=== PATIENT | female | born 1955 | race African-American/Black ===

== ENCOUNTER 2021-06-01 16:42 | Inpatient (IN) | payer OTHER ==
[~2021-06-01] VITALS: Ht 172.7 cm; Wt 81.8 kg
[2021-06-01 19:48] LABS: HEMATOCRIT. 28.9 % (36.0-48.0); HEMOGLOBIN. 8.9 g/dL (12.0-16.0); MEAN CORPUSCULAR HEMOGLOBIN 36.3 pg (28.0-32.0); MEAN CORPUSCULAR VOLUME 118.4 fL (81.0-99.0); MEAN PLATELET VOLUME 8.4 fl (7.4-10.4); PLATELET 228 x1000/uL (130-400); RED BLOOD CELL COUNT 2.44 mill/uL (4.2-5.4); RED CELL DISTRIBUTION WIDTH 14.9 % (11.6-14.6)
[2021-06-01 19:54] LABS: CHLORIDE 110 mEq/L (98-107)
[2021-06-01 19:58] LABS: ETHANOL BLOOD < 10 mg/dL
[2021-06-01 20:06] LABS: PARTIAL THROMBOPLASTIN TIME 42.5 sec (23.4-31.0); PROTHROMBIN TIME 20.8 sec (9.6-11.0)
[2021-06-01] MEDS ORDERED: VANCOMYCIN 1 G PREMIX 200 ML IV NR (20:25)
[2021-06-01] MEDS ORDERED: CEFEPIME 2,000 MG in DEXT 5% WATER 100 ML IV SCH (20:25)
[2021-06-01] MEDS ORDERED: SODIUM CHLORIDE 0.9% 1,000 ML IV ONE (20:30)
[2021-06-01 21:02] LABS: PLATELET ESTIMATE NORMAL
[2021-06-01 21:24] LABS: CLARITY URINE TURBID (CLEAR); COLOR URINE ORANGE (YELLOW); KETONES URINE TRACE (NEGATIVE); LEUKOCYTE ESTERASE URINE 3+ (NEGATIVE); NITRITE URINE POSITIVE (NEGATIVE); OCCULT BLOOD URINE 2+ (NEGATIVE); PH URINE 5.5 (4.5-8.0); PROTEIN URINE 1+ (NEGATIVE); SPECIFIC GRAVITY URINE 1.026 (1.005-1.030)
[2021-06-01] MEDS ORDERED: HALOPERIDOL LACTATE 5MG/ML VIAL IM ONE (21:45)
[2021-06-01] MEDS ORDERED: LORAZEPAM 2MG/ML CPJ IM ONE (21:45)
[2021-06-01 21:49] LABS: *COCAINE SCREEN URINE NEGATIVE (NEGATIVE); CANNABINOID URINE SCREEN PRESUMTIVE POSITIVE (NEGATIVE); METHADONE URINE SCREEN NEGATIVE (NEGATIVE); OPIATES URINE SCREEN PRESUMTIVE POSITIVE (NEGATIVE); PHENCYCLIDINE URINE SCREEN NEGATIVE (NEGATIVE)
[2021-06-01 21:50] LABS: *AMPHETAMINES SCREEN URINE NEGATIVE (NEGATIVE); *BARBITURATES SCREEN URINE NEGATIVE (NEGATIVE); *BENZODIAZEPINES SCREEN URINE NEGATIVE (NEGATIVE)
[2021-06-01] MEDS ORDERED: SODIUM CHLORIDE 0.9% 2,000 ML IV NR (22:30)
[2021-06-02] MEDS ORDERED: SODIUM CHLORIDE 0.9% 1000ML BAG (SEPSIS BOLUS) IV NR
[2021-06-02 00:30] LABS: BG BASE EXCESS -8.3 mmol/L (-2.0-2.0); BG CARBOXYHEMOGLOBIN 0.3 % (0.5-1.5); BG DEOXYHEMOGLOBIN 3.6 % (0.0-5.0); BG FRACTION INSPIRED OXYGEN 21; BG HCO3 ACT 14.5 mmol/L (22.0-26.0); BG METHEMOGLOBIN 0.4 % (0.0-1.5); BG OXYGEN SATURATION 96.4 % (92.0-98.5); BG OXYHEMOGLOBIN 95.7 % (94.0-97.0); BG PCO2 21.7 mmHg (35.0-45.0); BG PH 7.443 (7.350-7.450); BG PO2 94.1 mmHg (75.0-100.0); BG SAMPLE SITE RIGHT RADIAL; BG TOTAL HEMOGLOBIN 8.6 g/dL (12.0-18.0); BG VENT MODE ROOM AIR
[2021-06-02] MEDS ORDERED: DOCUSATE SODIUM 100MG CAPSULE PO PRN (01:45)
[2021-06-02] MEDS ORDERED: CLONIDINE 0.1MG TABLET PO PRN (01:45)
[2021-06-02] MEDS ORDERED: IPRATROPIUM/ALBUTEROL 0.5-3(2.5)MG/3ML NEB NEB PRN (01:45)
[2021-06-02] MEDS ORDERED: ACETAMINOPHEN 325MG TABLET PO PRN (01:45)
[2021-06-02] MEDS ORDERED: ONDANSETRON HCL 4MG/2ML INJ IV PRN (01:45)
[2021-06-02] MEDS ORDERED: MAGNESIUM/ALUMINUM HYDROXIDE/SIMETHICONE 30ML UDC PO PRN (01:45)
[2021-06-02] MEDS ORDERED: ALBUMIN HUMAN 25GM/100ML (25%) IV PRN (01:45)
[2021-06-02] MEDS ORDERED: MAGNESIUM 2 G PREMIX 50 ML IV NR (02:30)
[2021-06-02] MEDS ORDERED: MVI, ADULT NO.1 10 ML, FOLIC ACID 1 MG, THIAMINE HCL 100 MG in SODIUM CHLORIDE 0.9% 1,0... IV NR (02:30)
[2021-06-02] MEDS ORDERED: KCL 20MEQ/100ML PREMIX 100 ML IV NR (03:00)
[2021-06-02 03:47] LABS: HEMATOCRIT. 23.6 % (36.0-48.0); HEMOGLOBIN. 7.3 g/dL (12.0-16.0); MEAN CORPUSCULAR HEMOGLOBIN 36.6 pg (28.0-32.0); MEAN CORPUSCULAR VOLUME 117.8 fL (81.0-99.0); MEAN PLATELET VOLUME 8.3 fl (7.4-10.4); PLATELET 182 x1000/uL (130-400); RED CELL DISTRIBUTION WIDTH 14.7 % (11.6-14.6)
[2021-06-02 03:53] LABS: CHLORIDE 116 mEq/L (98-107)
[2021-06-02 04:03] LABS: HDL CHOLESTEROL 16 mg/dL (40-59)
[2021-06-02 04:04] LABS: LDL CHOLESTEROL 141 mg/dL (5-100)
[2021-06-02 05:06] LABS: CREATINE KINASE MB FRACTION 1.7 ng/mL (0.5-3.6)
[2021-06-02 05:27] LABS: HEPATITIS B SURFACE ANTIGEN NEGATIVE
[2021-06-02 05:37] LABS: PLATELET ESTIMATE NORMAL
[2021-06-02] MEDS ORDERED: LACTATED RINGERS 1,000 ML IV SCH (10:00)
[2021-06-02] MEDS ORDERED: PIPERACILLIN/TAZ 3.375G PREMIX 50 ML IV NR (11:15)
[2021-06-02] MEDS: SODIUM CHLORIDE 0.45% 1,000 ML IV SCH ×2 (11:49→22:59)
[2021-06-02 13:26] LABS: T4 FREE 1.22 ng/dL (0.76-1.46)
[2021-06-02 14:58] LABS: VITAMIN B12 SERUM >2000 pg/mL pg/mL (211-911)
[2021-06-02 18:30] VITALS: BP 121/75
[2021-06-02 20:00] VITALS: BP_SYST 106; BP_SYST 121; BP_DIAS 73; BP_DIAS 80
[2021-06-02 21:41] LABS: CREATINE KINASE MB FRACTION 4.7 ng/mL (0.5-3.6)
[2021-06-02] MEDS ORDERED: PIPERACILLIN/TAZOBACTAM 3.375 G in DEXTROSE 5% WATER 50 ML IV SCH (22:00)
[2021-06-03] VITALS (61 sets, daily range): BP systolic 49–205; BP diastolic 25–168
[2021-06-03 04:18] LABS: BG CARBOXYHEMOGLOBIN 0.3 % (0.5-1.5); BG DEOXYHEMOGLOBIN 0.5 % (0.0-5.0); BG FRACTION INSPIRED OXYGEN 100; BG HCO3 ACT 10.6 mmol/L (22.0-26.0); BG METHEMOGLOBIN 0.5 % (0.0-1.5); BG OXYGEN SATURATION 99.5 % (92.0-98.5); BG OXYHEMOGLOBIN 98.7 % (94.0-97.0); BG PCO2 13.2 mmHg (35.0-45.0); BG PH 7.524 (7.350-7.450); BG PO2 575.1 mmHg (75.0-100.0); BG SAMPLE SITE RIGHT FEMORAL; BG TOTAL HEMOGLOBIN 9.5 g/dL (12.0-18.0); BG TOTAL RESPIRATORY RATE 20 b/min; BG VENT MODE MASK - BIPAP
[2021-06-03] MEDS ORDERED: ALBUMIN HUMAN 25GM/100ML (25%) IV PRN ×2 (04:45→06:45)
[2021-06-03 06:10] LABS: HEMATOCRIT. 28.3 % (36.0-48.0); HEMOGLOBIN. 8.6 g/dL (12.0-16.0); MEAN CORPUSCULAR HEMOGLOBIN 36.3 pg (28.0-32.0); MEAN CORPUSCULAR VOLUME 119.5 fL (81.0-99.0); MEAN PLATELET VOLUME 8.5 fl (7.4-10.4); PLATELET 189 x1000/uL (130-400); RED BLOOD CELL COUNT 2.37 mill/uL (4.2-5.4)
[2021-06-03 06:16] LABS: CHLORIDE 116 mEq/L (98-107)
[2021-06-03] MEDS: SODIUM CHLORIDE 0.45% 1,000 ML IV SCH ×2 (06:37→20:20)
[2021-06-03] MEDS: PIPERACILLIN/TAZOBACTAM 3.375 G in DEXTROSE 5% WATER 50 ML IV SCH ×3 (08:11→21:44)
[2021-06-03] MEDS: THIAMINE HCL 100MG TABLET PO SCH (09:27)
[2021-06-03] MEDS: MULTIVITAMINS,THER W-MINERALS TABLET PO SCH (09:27)
[2021-06-03] MEDS: FOLIC ACID 1MG TABLET PO SCH (09:27)
[2021-06-03] MEDS ORDERED: POTASSIUM CHLORIDE INJ 40 MEQ in DEXT 5% WATER 500 ML IV ONE (10:15)
[2021-06-03 10:54] LABS: PLATELET ESTIMATE NORMAL
[2021-06-03] MEDS ORDERED: IOHEXOL-350 100 ML BOTTLE ONE (12:01)
[2021-06-03] MEDS: KCL 20MEQ/100ML PREMIX 100 ML IV SCH ×2 (12:27→13:47)
[2021-06-03] MEDS: IPRATROPIUM/ALBUTEROL 0.5-3(2.5)MG/3ML NEB HHN SCH (20:21)
[2021-06-04] VITALS (57 sets, daily range): BP systolic 70–186; BP diastolic 29–107
[2021-06-04] MEDS: IPRATROPIUM/ALBUTEROL 0.5-3(2.5)MG/3ML NEB HHN SCH ×4 (00:36→20:57)
[2021-06-04] MEDS ORDERED: DILTIAZEM HCL 125 MG in DEXT 5% WATER 100 ML IV PRN (04:00)
[2021-06-04] MEDS ORDERED: ALBUMIN HUMAN 25GM/100ML (25%) IV NR (04:30)
[2021-06-04] MEDS: PIPERACILLIN/TAZOBACTAM 3.375 G in DEXTROSE 5% WATER 50 ML IV SCH (05:08)
[2021-06-04 05:55] LABS: HEMATOCRIT. 24.5 % (36.0-48.0); HEMOGLOBIN. 7.7 g/dL (12.0-16.0); MEAN CORPUSCULAR HEMOGLOBIN 36.7 pg (28.0-32.0); MEAN CORPUSCULAR VOLUME 116.2 fL (81.0-99.0); PLATELET 173 x1000/uL (130-400); RED BLOOD CELL COUNT 2.11 mill/uL (4.2-5.4); RED CELL DISTRIBUTION WIDTH 15.7 % (11.6-14.6)
[2021-06-04 06:11] LABS: CHLORIDE 115 mEq/L (98-107)
[2021-06-04 06:20] LABS: PHOSPHORUS 1.4 mg/dL (2.5-4.9)
[2021-06-04] MEDS: THIAMINE HCL 100MG TABLET PO SCH (08:36)
[2021-06-04] MEDS: SODIUM CHLORIDE 0.45% 1,000 ML IV SCH ×2 (08:36→18:34)
[2021-06-04] MEDS: FOLIC ACID 1MG TABLET PO SCH (08:36)
[2021-06-04] MEDS: MULTIVITAMINS,THER W-MINERALS TABLET PO SCH (08:36)
[2021-06-04] MEDS: CEFEPIME 1,000 MG in DEXTROSE 5% WATER 50 ML IV SCH ×2 (12:56→21:14)
[2021-06-04] MEDS ORDERED: MAGNESIUM 2 G PREMIX 50 ML IV SCH (13:00)
[2021-06-04 17:53] LABS: PLATELET ESTIMATE NORMAL
[2021-06-05] VITALS (72 sets, daily range): BP systolic 47–163; BP diastolic 17–127
[2021-06-05] MEDS: IPRATROPIUM/ALBUTEROL 0.5-3(2.5)MG/3ML NEB HHN SCH ×4 (00:51→21:54)
[2021-06-05 05:30] LABS: MEAN CORPUSCULAR HEMOGLOBIN 36.4 pg (28.0-32.0); MEAN CORPUSCULAR VOLUME 113.1 fL (81.0-99.0); MEAN PLATELET VOLUME 8.9 fl (7.4-10.4); PLATELET 141 x1000/uL (130-400); RED BLOOD CELL COUNT 1.77 mill/uL (4.2-5.4); RED CELL DISTRIBUTION WIDTH 15.1 % (11.6-14.6)
[2021-06-05 05:41] LABS: CHLORIDE 114 mEq/L (98-107)
[2021-06-05] MEDS: SODIUM CHLORIDE 0.45% 1,000 ML IV SCH (05:47)
[2021-06-05 06:19] LABS: HEMOGLOBIN. 6.4 g/dL (12.0-16.0)
[2021-06-05] MEDS ORDERED: ETOMIDATE 2MG/ML 10ML VIAL IV ONE (07:50)
[2021-06-05] MEDS ORDERED: VECURONIUM BROMIDE 10 MG/VIAL IV ONE (07:50)
[2021-06-05] MEDS ORDERED: POTASSIUM CHLORIDE INJ 40 MEQ in DEXT 5% WATER 250 ML IV ONE (08:15)
[2021-06-05 08:52] LABS: NUCLEATED RED BLOOD CELLS 2 /100 WBC
[2021-06-05 08:53] LABS: PLATELET ESTIMATE NORMAL
[2021-06-05] MEDS: FOLIC ACID 1MG TABLET PO SCH (08:53)
[2021-06-05] MEDS: THIAMINE HCL 100MG TABLET PO SCH (08:53)
[2021-06-05] MEDS: CEFEPIME 1,000 MG in DEXTROSE 5% WATER 50 ML IV SCH ×2 (08:53→21:39)
[2021-06-05] MEDS: PHENYLEPHRINE 100 MG in DEXT 5% WATER 240 ML IV PRN ×2 (08:53→18:48)
[2021-06-05] MEDS: MULTIVITAMINS,THER W-MINERALS TABLET PO SCH (08:53)
[2021-06-05 10:34] LABS: TOTAL IRON BINDING CAPACITY 30 ug/dL (250-450)
[2021-06-05] MEDS: KCL 20MEQ/100ML PREMIX 100 ML IV SCH ×2 (10:52→11:28)
[2021-06-05] MEDS: DEXT 5%/0.45% NACL 1000ML 1,000 ML IV SCH ×2 (11:28→21:39)
[2021-06-05] MEDS: NOREPINEPHRINE 32 MG in DEXT 5% WATER 218 ML IV PRN ×2 (13:32→21:41)
[2021-06-05 15:17] LABS: BG BASE EXCESS -7.5 mmol/L (-2.0-2.0); BG CARBOXYHEMOGLOBIN 0.3 % (0.5-1.5); BG DEOXYHEMOGLOBIN 0.6 % (0.0-5.0); BG FRACTION INSPIRED OXYGEN 100; BG HCO3 ACT 15.1 mmol/L (22.0-26.0); BG METHEMOGLOBIN 0.3 % (0.0-1.5); BG OXYGEN SATURATION 99.4 % (92.0-98.5); BG OXYHEMOGLOBIN 98.8 % (94.0-97.0); BG PCO2 22.8 mmHg (35.0-45.0); BG PH 7.439 (7.350-7.450); BG PO2 432.9 mmHg (75.0-100.0); BG SAMPLE SITE RIGHT RADIAL; BG TOTAL HEMOGLOBIN 10.5 g/dL (12.0-18.0); BG VENT MODE MASK - NRB
[2021-06-05 17:09] LABS: HEMATOCRIT 29.7 % (36.0-48.0); HEMOGLOBIN 9.7 g/dL (12.0-16.0)
[2021-06-05 17:15] LABS: INR 1.4; PROTHROMBIN TIME 15.1 sec (9.6-11.0)
[2021-06-05] MEDS: DOPAMINE 400MG/250ML PREMIX 250 ML IV PRN (17:53)
[2021-06-05] MEDS: VASOPRESSIN 20 UNIT in SODIUM CHLORIDE 0.9% 99 ML IV PRN (17:54)
[2021-06-05] MEDS ORDERED: FENTANYL CITRATE/PF 2,500 MCG in SODIUM CHLORIDE 0.9% 200 ML IV PRN (18:45)
[2021-06-05] MEDS ORDERED: SODIUM CHLORIDE 0.9% 500 ML IV NR (19:15)
[2021-06-05 19:19] LABS: BG BASE EXCESS -19.2 mmol/L (-2.0-2.0); BG CARBOXYHEMOGLOBIN 0.3 % (0.5-1.5); BG DEOXYHEMOGLOBIN 8.5 % (0.0-5.0); BG HCO3 ACT 9.8 mmol/L (22.0-26.0); BG METHEMOGLOBIN 0.4 % (0.0-1.5); BG OXYGEN SATURATION 91.4 % (92.0-98.5); BG OXYHEMOGLOBIN 90.8 % (94.0-97.0); BG PCO2 35.2 mmHg (35.0-45.0); BG PH 7.064 (7.350-7.450); BG SAMPLE SITE RIGHT RADIAL; BG TOTAL HEMOGLOBIN 10.2 g/dL (12.0-18.0); BG TOTAL RESPIRATORY RATE 20 b/min; BG VENT MODE VENT - AC
[2021-06-05] MEDS ORDERED: SODIUM BICARBONATE 8.4% 1 MEQ/ML 50ML SYR IV NR (19:30)
[2021-06-05] MEDS: PANTOPRAZOLE SODIUM 40 MG/VIAL IV SCH (21:40)
[2021-06-05] MEDS ORDERED: HYDROCORTISONE 10MG TABLET PO SCH ×2 (22:30→22:45)
[2021-06-05] MEDS ORDERED: HYDROCORTISONE SOD SUCCINATE 100 MG/2 ML VIAL IV NR (22:30)
[2021-06-06] VITALS (10 sets, daily range): BP systolic 45–134; BP diastolic 21–108
[2021-06-06] MEDS ORDERED: DEXTROSE 50% WATER 50ML SYRINGE IV PRN (00:15)
[2021-06-06] MEDS: BLOOD SUGAR DIAGNOSTIC STRIP TEST SCH ×5 (00:19→23:42)
[2021-06-06] MEDS: INSULIN LISPRO 100 UNITS/ML SUBCUT SCH ×5 (00:22→23:42)
[2021-06-06] MEDS: VASOPRESSIN 20 UNIT in SODIUM CHLORIDE 0.9% 99 ML IV PRN ×3 (01:33→17:09)
[2021-06-06] MEDS: IPRATROPIUM/ALBUTEROL 0.5-3(2.5)MG/3ML NEB HHN SCH ×4 (02:02→20:52)
[2021-06-06] MEDS: PHENYLEPHRINE 100 MG in DEXT 5% WATER 240 ML IV PRN ×4 (02:41→20:24)
[2021-06-06] MEDS: NOREPINEPHRINE 32 MG in DEXT 5% WATER 218 ML IV PRN ×3 (04:41→17:09)
[2021-06-06] MEDS: DEXT 5%/0.45% NACL 1000ML 1,000 ML IV SCH (04:41)
[2021-06-06] MEDS: HYDROCORTISONE SOD SUCCINATE 100 MG/2 ML VIAL IV SCH ×3 (06:15→21:59)
[2021-06-06 07:25] LABS: HEMOGLOBIN. 9.8 g/dL (12.0-16.0); MEAN CORPUSCULAR HEMOGLOBIN 33.9 pg (28.0-32.0); MEAN CORPUSCULAR VOLUME 110.6 fL (81.0-99.0); RED CELL DISTRIBUTION WIDTH 22.5 % (11.6-14.6)
[2021-06-06 07:32] LABS: CHLORIDE 110 mEq/L (98-107); INR 2.2; PROTHROMBIN TIME 22.1 sec (9.6-11.0)
[2021-06-06] MEDS: CEFEPIME 1,000 MG in DEXTROSE 5% WATER 50 ML IV SCH ×2 (08:26→21:09)
[2021-06-06] MEDS: FOLIC ACID 1MG TABLET PO SCH (08:26)
[2021-06-06] MEDS: THIAMINE HCL 100MG TABLET PO SCH (08:26)
[2021-06-06] MEDS: PANTOPRAZOLE SODIUM 40 MG/VIAL IV SCH ×2 (08:26→16:24)
[2021-06-06 08:37] LABS: NUCLEATED RED BLOOD CELLS 12 /100 WBC
[2021-06-06 08:41] LABS: MEAN PLATELET VOLUME 9.3 fl (7.4-10.4); PLATELET 123 x1000/uL (130-400)
[2021-06-06] MEDS ORDERED: LIDOCAINE HCL 1% 10 MG/ML 10ML VIAL ONE (08:41)
[2021-06-06 09:00] LABS: BG BASE EXCESS -21.6 mmol/L (-2.0-2.0); BG CARBOXYHEMOGLOBIN 0.3 % (0.5-1.5); BG FRACTION INSPIRED OXYGEN 100; BG HCO3 ACT 8.7 mmol/L (22.0-26.0); BG METHEMOGLOBIN 0.4 % (0.0-1.5); BG OXYHEMOGLOBIN 98.3 % (94.0-97.0); BG PCO2 36.7 mmHg (35.0-45.0); BG PH 6.993 (7.350-7.450); BG PO2 178.2 mmHg (75.0-100.0); BG SAMPLE SITE RIGHT FEMORAL; BG TOTAL HEMOGLOBIN 10.3 g/dL (12.0-18.0); BG VENT MODE VENT - AC
[2021-06-06] MEDS ORDERED: SODIUM BICARBONATE 8.4% 1 MEQ/ML 50ML SYR IV NR (09:15)
[2021-06-06] MEDS: MULTIVITAMINS,THER W-MINERALS TABLET PO SCH (09:21)
[2021-06-06] MEDS ORDERED: KCL 20MEQ/100ML PREMIX 100 ML IV NR (10:00)
[2021-06-06] MEDS ORDERED: SODIUM BICARBONATE 150 MEQ in SODIUM CHLORIDE 0.45% 1,000 ML IV SCH (11:00)
[2021-06-06 13:00] LABS: PLATELET ESTIMATE SLIGHTLY DECREASED
[2021-06-06 13:41] LABS: BG BASE EXCESS -14.1 mmol/L (-2.0-2.0); BG CARBOXYHEMOGLOBIN 0.3 % (0.5-1.5); BG DEOXYHEMOGLOBIN 74.7 % (0.0-5.0); BG FRACTION INSPIRED OXYGEN 100; BG HCO3 ACT 16.8 mmol/L (22.0-26.0); BG METHEMOGLOBIN 1.2 % (0.0-1.5); BG OXYGEN SATURATION 24.2 % (92.0-98.5); BG OXYHEMOGLOBIN 23.8 % (94.0-97.0); BG PCO2 66.7 mmHg (35.0-45.0); BG PO2 < 30.3 mmHg (75.0-100.0); BG SAMPLE SITE RIGHT FEMORAL; BG TOTAL HEMOGLOBIN 10.2 g/dL (12.0-18.0); BG TOTAL RESPIRATORY RATE 30 b/min; BG VENT MODE VENT - AC
[2021-06-06] MEDS: MIDODRINE HCL 5MG TABLET PO SCH (16:23)
[2021-06-06] MEDS ORDERED: SODIUM BICARBONATE IV SCH (19:30)
[2021-06-06] MEDS ORDERED: DEXT 5% IV SCH (19:30)
[2021-06-06] MEDS ORDERED: WATER IV SCH (19:30)
[2021-06-07] MEDS: NOREPINEPHRINE 32 MG in DEXT 5% WATER 218 ML IV PRN (00:19)
[2021-06-07] MEDS: VASOPRESSIN 20 UNIT in SODIUM CHLORIDE 0.9% 99 ML IV PRN ×2 (01:14→10:41)
[2021-06-07] MEDS: DOPAMINE 400MG/250ML PREMIX 250 ML IV PRN (03:05)
[2021-06-07] MEDS: PHENYLEPHRINE 100 MG in DEXT 5% WATER 240 ML IV PRN ×2 (03:07→07:07)
[2021-06-07] MEDS: IPRATROPIUM/ALBUTEROL 0.5-3(2.5)MG/3ML NEB HHN SCH ×2 (04:42→09:23)
[2021-06-07] MEDS: HYDROCORTISONE SOD SUCCINATE 100 MG/2 ML VIAL IV SCH (06:21)
[2021-06-07] MEDS: BLOOD SUGAR DIAGNOSTIC STRIP TEST SCH (06:21)
[2021-06-07] MEDS ORDERED: INSULIN LISPRO 100 UNITS/ML SUBCUT SCH (06:30)
[2021-06-07 06:37] LABS: HEMATOCRIT. 31.6 % (36.0-48.0); HEMOGLOBIN. 10.1 g/dL (12.0-16.0); MEAN CORPUSCULAR VOLUME 103.5 fL (81.0-99.0); RED BLOOD CELL COUNT 3.05 mill/uL (4.2-5.4); RED CELL DISTRIBUTION WIDTH 21.7 % (11.6-14.6)
[2021-06-07 06:39] LABS: CHLORIDE 105 mEq/L (98-107)
[2021-06-07 06:42] LABS: PROTHROMBIN TIME 43.4 sec (9.6-11.0)
[2021-06-07 06:57] LABS: INR 4.6
[2021-06-07 08:37] VITALS: BP 42/27
[2021-06-07] MEDS ORDERED: EPINEPHRINE 0.1MG/ML (1:10,000) 10ML SYR ONE (08:43)
[2021-06-07] MEDS ORDERED: SODIUM BICARBONATE 8.4% 1 MEQ/ML 50ML SYR IV ONE (08:43)
[2021-06-07] MEDS ORDERED: CALCIUM CHLORIDE 1GM/10ML SYR IV ONE (08:43)
[2021-06-07] MEDS ORDERED: ATROPINE SULFATE 1MG/10ML SYR ONE (08:43)
[2021-06-07] MEDS ORDERED: DEXTROSE 50% WATER 50ML SYRINGE IV ONE (09:47)
[2021-06-07] MEDS: PANTOPRAZOLE SODIUM 40 MG/VIAL IV SCH (10:00)
[2021-06-07 10:02] LABS: NUCLEATED RED BLOOD CELLS 9 /100 WBC
[2021-06-07] MEDS: FOLIC ACID 1MG TABLET PO SCH (10:02)
[2021-06-07] MEDS: MULTIVITAMINS,THER W-MINERALS TABLET PO SCH (10:02)
[2021-06-07] MEDS: MIDODRINE HCL 5MG TABLET PO SCH (10:02)
[2021-06-07] MEDS: THIAMINE HCL 100MG TABLET PO SCH (10:02)
[2021-06-07 10:06] LABS: PLATELET ESTIMATE MARKEDLY DECREASED
[2021-06-07 10:08] LABS: MEAN PLATELET VOLUME 8.3 fl (7.4-10.4); PLATELET 49 x1000/uL (130-400)
== END 2021-06-07 12:38 | DRG 871 ==
LOC: ER 16:42 → 6WST 06-02 00:02 → EDBEDREQSVC 06-02 05:32 → EDBEDREQTM 06-02 05:32 → ENRESERV 06-02 15:19 → 5EST 06-03 03:00 → CVICU 06-03 05:15
PROVIDERS: ADMIT Internal Medicine; ATTEND Internal Medicine
PROC: 06HN33Z Insertion of Infusion Device into Left Femoral Vein, Percutaneous Approach (ICD-10-PCS; principal; 2021-06-02)
PROC: 4A00X4Z Measurement of Central Nervous Electrical Activity, External Approach (ICD-10-PCS; 2021-06-03)
PROC: 5A1935Z Respiratory Ventilation, Less than 24 Consecutive Hours (ICD-10-PCS; 2021-06-03)
PROC: 0BH17EZ Insertion of Endotracheal Airway into Trachea, Via Natural or Artificial Opening (ICD-10-PCS; 2021-06-03)
PROC: 5A1935Z Respiratory Ventilation, Less than 24 Consecutive Hours (ICD-10-PCS; 2021-06-04)
PROC: 0BH17EZ Insertion of Endotracheal Airway into Trachea, Via Natural or Artificial Opening (ICD-10-PCS; 2021-06-04)
PROC: 30233N1 Transfusion of Nonautologous Red Blood Cells into Peripheral Vein, Percutaneous Approach (ICD-10-PCS; 2021-06-05)
PROC: 5A09357 Assistance with Respiratory Ventilation, Less than 24 Consecutive Hours, Continuous Positive Airway Pressure (ICD-10-PCS; 2021-06-05)
PROC: 5A1945Z Respiratory Ventilation, 24-96 Consecutive Hours (ICD-10-PCS; 2021-06-06)
PROC: 0BH17EZ Insertion of Endotracheal Airway into Trachea, Via Natural or Artificial Opening (ICD-10-PCS; 2021-06-06)
DX: A41.51 Sepsis due to Escherichia coli [E. coli] (principal); G92.8 Other toxic encephalopathy; E43 Unspecified severe protein-calorie malnutrition; R65.21 Severe sepsis with septic shock; I50.21 Acute systolic (congestive) heart failure; J96.01 Acute respiratory failure with hypoxia; I21.A1 Myocardial infarction type 2; I40.0 Infective myocarditis; I63.9 Cerebral infarction, unspecified; D68.9 Coagulation defect, unspecified; N39.0 Urinary tract infection, site not specified; I42.9 Cardiomyopathy, unspecified; E83.42 Hypomagnesemia; R57.0 Cardiogenic shock; E78.5 Hyperlipidemia, unspecified; I11.0 Hypertensive heart disease with heart failure; K74.60 Unspecified cirrhosis of liver; E87.6 Hypokalemia; D53.9 Nutritional anemia, unspecified; I50.82 Biventricular heart failure; D69.6 Thrombocytopenia, unspecified; F19.10 Other psychoactive substance abuse, uncomplicated; E05.90 Thyrotoxicosis, unspecified without thyrotoxic crisis or storm; Z20.822 Contact with and (suspected) exposure to COVID-19; E66.9 Obesity, unspecified; R80.9 Proteinuria, unspecified; E78.00 Pure hypercholesterolemia, unspecified; E78.1 Pure hyperglyceridemia; E83.51 Hypocalcemia; F12.90 Cannabis use, unspecified, uncomplicated; K76.0 Fatty (change of) liver, not elsewhere classified; B96.89 Other specified bacterial agents as the cause of diseases classified elsewhere; Z78.1 Physical restraint status; Z87.891 Personal history of nicotine dependence; Z68.27 Body mass index [BMI] 27.0-27.9, adult; E03.9 Hypothyroidism, unspecified
CPT/HCPCS: 31500; 36415; 36600; 70544; 70551; 71045; 71275; 76700; 80048; 80053; 80061; 80076; 80305; 80320; 81003; 82140; 82248; 82270; 82375; 82550; 82553; 82607; 82728; 82746; 82805; 82962; 83036; 83540; 83550; 83605; 83735; 83880; 84100; 84132; 84134; 84145; 84439; 84443; 84481; 84484; 85014; 85018; 85025; 85044; 85651; 86140; 86705; 86709; 86803; 86850; 86900; 86920; 87070; 87077; 87186; 87340; 87426; 93005; 93306; 93308; 93880; 94002; 94003; 94640; 94660; 99291; A6261; C9113; J0461; J0692; J1265; J1630; J1720; J1815; J2060; J2370; J2543; J3370; J3411; J3475; J3480; J3490; J7030; J7040; J7050; J7060; P9016; P9047; Q9967; U0003; U0005; G0480